=== PATIENT | female | born 1990 | race Two or more races ===

== ENCOUNTER 2018-02-25 21:02 | Observation (INO) | payer MEDICAID ==
[~2018-02-25] VITALS: Ht 152.4 cm; Wt 77.1 kg
[2018-02-25] MEDS ORDERED: PREN-153 OR (21:25)
== END 2018-02-25 22:40 | disposition home or self-care (01) | DRG 566 ==
LOC: LDRP 21:02
PROVIDERS: ADMIT Obstetrics & Gynecology; ATTEND Obstetrics & Gynecology
DX: O26.893 Other specified pregnancy related conditions, third trimester (principal); R10.9 Unspecified abdominal pain; W18.39XA Other fall on same level, initial encounter; Z3A.33 33 weeks gestation of pregnancy
CPT/HCPCS: 59025; 76815; 81002; G0378